=== PATIENT | male | born 2000 | race Caucasian/White ===

== ENCOUNTER 2021-03-30 11:22 | Emergency (ER) | payer OTHER ==
[2021-03-30 11:33] VITALS: BP 147/80
[2021-03-30] MEDS ORDERED: BACITRACIN ZINC OINT 1 PACKET TOP STA (11:56)
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
== END 2021-03-30 12:11 | disposition home or self-care (01) ==
LOC: ED 11:22
DX: T23.061A Burn of unspecified degree of back of right hand, initial encounter (principal); T23.031A Burn of unspecified degree of multiple right fingers (nail), not including thumb, initial encounter; X08.8XXA Exposure to other specified smoke, fire and flames, initial encounter; Y93.11 Activity, swimming; Y92.832 Beach as the place of occurrence of the external cause
CPT/HCPCS: 99282; 99283; A9270